=== PATIENT | female | born 1980 | race Caucasian/White ===

== ENCOUNTER 2024-10-28 10:15 | Observation (INO) | payer BC, SELFPAY ==
[2024-10-28] VITALS (18 sets, daily range): BP systolic 112–183; BP diastolic 59–91; PULSE 72–91; RESP 12–19; TEMP 36.1–37.2; O2SAT 95–100; BMI 44.6
--- NOTE | 2024-10-28 | PATH_ITS ---
[facility] Accession Number: [id number] No. of containers..01 Tissue . 01 Material submitted: . appendix - APPENDIX . 01 Diagnosis: APPENDIX, APPENDECTOMY: Acute appendicitis with serositis. MRV 10/31/2024 0912 Local . 01 Electronically signed: . Micaela Javier DO, Pathologist NPI- [id number] . 01 Gross description: . Received in formalin with two identifiers and appendix, is a cano, vermiform appendix, 4.9 cm in length and 0.7 cm in average diameter with cano, roughened serosa with adherent material consistent with exudate. The mesoappendix extends out to 2.9 cm. The margin is patent and is inked blue. The lumen is patent and is 0.3 to 0.1 cm in diameter with no contents identified. The anderson average 0.3 cm thick with no perforation or lesions identified. Forester Aide sections to include the margin, entire bisected distal tip, and cross-sections are submitted in A1. ([id number]) /MRV 10/29/2024 2311 Local . 01 Pathologist provided ICD-10: K35.30 . 01 CPT . 545501 Specimen Comment: A courtesy copy of this report has been sent to [phone] Performed at: [address] [facility] [address], [place], [place] [id number] MD Faisal Marte MD Phone: [phone]
[2024-10-28 10:47] LABS: Add Manual Diff / Slide Review NO; Basophils Absolute Auto 0 /uL (0-100); Basophils Percent Auto 0.5 % (0-2); Eosinophils Absolute Auto 300 /uL (0-450); Eosinophils Percent Auto 3.3 % (2-4); Hematocrit 41.8 % (36-46); Hemoglobin 13.8 g/dL (12.0-16.0); Lymphocytes Absolute Auto 1300 /uL (1100-4500); Lymphocytes Percent Auto 13.4 % (25-40); Mean Corpuscular Hemoglobin 28.2 PG (26-34); Mean Corpuscular Volume 85.3 fL (80-100); Monocytes Absolute Auto 500 /uL (0-900); Monocytes Percent Auto 5.4 % (3-14); Neutrophils Absolute Auto 7600 /uL (1500-7000); Neutrophils Percent Auto 77.4 % (50-75); Platelet Count 232 X10^3/uL (150-400); Red Cell Distribution Width 13.9 % (11.6-14.8); White Blood Cell Count 9.9 X10^3/uL (4.5-11.0)
[2024-10-28 11:06] LABS: Alanine Aminotransferase 37 IU/L (<35); Albumin 4.7 g/dL (3.5-5.0); Albumin Globulin Ratio 1.6 (1.0-2.8); Alkaline Phosphatase 79 U/L (38-126); Aspartate Aminotransferase 27 IU/L (14-36); Bilirubin Total 0.9 mg/dL (0.2-1.3); Blood Urea Nitrogen 14 mg/dL (7-17); Calcium 9.3 mg/dL (8.4-10.2); Carbon Dioxide 26 mmol/L (22-32); Chloride 103 mmol/L (98-107); Estimated Glomerular Filt Rate > 60 mL/min (>60); Glucose 114 mg/dL (70-99); HEMOLYSIS < 15 (0-50); Lipase 192 U/L (23-300); Sodium 138 mmol/L (137-145); Total Protein 7.7 g/dL (6.3-8.2)
--- NOTE | 2024-10-28 11:51 | ED_ITS ---
HPI - Abdominal Pain <Patricia Segura PA-C - Last Filed: 10/28/24 15:03> General Chief Complaint: Abdominal Pain Stated Complaint: Lower right side pain x 1 day Time Seen by Provider: 10/28/24 11:50 Source: patient Mode of arrival: Ambulatory History of Present Illness HPI narrative: This is a 44-year-old woman who presents with concern for right lower quadrant abdominal pain worse with movements since yesterday at around 7:00 p.m. 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 She describes it as generalized right lower quadrant pain when it started and persisting into today. She says if she stays completely still the pain is mild and tolerable but any movement makes it worse and she felt she was going to be unable to work today so she came to the hospital for evaluation. She lives on [address]. She had a normal bowel movement yesterday morning for her. She states she normally has bowel movements once daily. She does state that she has a history of some low abdominal pains which she believes were from ovarian cysts in the past although she has never had this evaluated. She does state that she has a complex history with a retained placenta after delivery and associated bleeding approximately 8 years ago. She has never had any abdominal or pelvic surgeries. She states she has a control implant and does not have periods. She denies nausea, vomiting, fevers, chills, flank pain, dizziness, lightheadedness, vaginal bleeding, diarrhea, constipation urgency frequency of urination or dysuria. Related Data Allergies Allergy/AdvReac Type Severity Reaction Status Date / Time No Known Drug Allergies Allergy Verified 10/28/24 10:23 Review of Systems <Patricia Segura PA-C - Last Filed: 10/28/24 15:03> Review of Systems Narrative: See HPI Patient History <Patricia Segura PA-C - Last Filed: 10/28/24 15:03> Social History household members: spouse Smoking Status: Never smoker Smoking Status: Unknown if ever smoked Exam <Patricia Segura PA-C - Last Filed: 10/28/24 15:03> Narrative Exam Narrative: GENERAL: 44 year old patient appears stated age. Well-developed patient, in mild distress. HEAD: Atraumatic. Normocephalic. EYES: Pupils equal round and reactive. Extraocular motions intact. No scleral icterus. No injection or drainage. ENT: Nose without bleeding, purulent drainage. Airway patent. NECK: Trachea midline. CARDIOVASCULAR: Regular rate and rhythm without murmurs, gallops, or rubs. RESPIRATORY: Clear to auscultation. Breath sounds equal bilaterally. No wheezes, rales, or rhonchi. GASTROINTESTINAL: Abdomen soft, protuberant, there is pronounced right lower quadrant tenderness with light palpation over McBurney's point and generalized right lower quadrant tenderness. Positive obturator sign, increased pain with percussion over McBurney's point negative Rovsing, negative Ravi's, no CVA tenderness. Nondistended. EXTREMITIES: No edema or joint tenderness. BACK: Nontender without deformity or crepitance. No flank tenderness. NEURO: AOx3. SKIN: No rash or erythema of visible areas Initial Vital Signs Initial Vital Signs: Vital Signs Temperature 98.9 F 10/28/24 10:16 Pulse Rate 83 10/28/24 10:16 Respiratory Rate 15 10/28/24 10:16 Blood Pressure 183/84 H 10/28/24 10:16 Pulse Oximetry 99 10/28/24 10:16 Oxygen Delivery Method Room Air 10/28/24 10:16 <Daylin Rosales DO - Last Filed: 10/28/24 15:36> Initial Vital Signs Initial Vital Signs: Vital Signs Temperature 98.9 F 10/28/24 10:16 Pulse Rate 83 10/28/24 10:16 Respiratory Rate 15 10/28/24 10:16 Blood Pressure 183/84 H 10/28/24 10:16 Pulse Oximetry 99 10/28/24 10:16 Oxygen Delivery Method Room Air 10/28/24 10:16 Course <Patricia Segura PA-C - Last Filed: 10/28/24 15:03> Course Course Narrative: Spoke with Dr. Yu, general surgeon about this patient with the acute appendicitis. He will contact OR and see if it is possible to get her in for surgery today versus admit her for surgery tomorrow. He will call back. 12:50 Decision to Admit Date: 10/28/24 Decision to Admit time: 12:50 Additional Information: Admit versus transfer to OR for surgery Orders Ordered: ED Orders 10/28/24 10:38 Complete Blood Count AUTO DIFF Stat Comprehensive Metabolic Panel Stat Lipase Stat 10/28/24 12:05 CT abdomen pelvis w con Stat Fentanyl (Fentanyl 100 Mcg/2 Ml Inj) 0 mcg IV Q5M PRN PRN Reason: Pain, Moderate (4-6) Hydromorphone HCl (Hydromorphone 1 Mg Inj) 0 mg IV Q5MIN PRN PRN Reason: Pain, Moderate (4-6) Hydroxyzine HCl (Hydroxyzine 50 Mg/Ml Inj) 25 mg IM NOW PRN PRN Reason: Pain, Mild (1-3) Lactated Ringer's (Lactated Ringers) 1,000 mls @ 42 mls/hr IV CONT DARYA Last Admin: 10/28/24 14:46 Dose: 42 mls/hr Documented By: GUSTAVO Ondansetron HCl (Ondansetron 4 Mg/2 Ml Inj) 4 mg IV NOW PRN PRN Reason: Nausea And Vomiting Ondansetron HCl (Ondansetron 4 Mg Odt) 4 mg PO NOW PRN PRN Reason: Nausea And Vomiting Ondansetron HCl (Ondansetron 4 Mg/2 Ml Inj) 4 mg IV NOW PRN PRN Reason: Nausea And Vomiting Oxycodone HCl (Oxycodone Ir 5 Mg Tablet) 5 mg PO PACUNOW PRN PRN Reason: Mild or moderate pain Discontinued Medications Bupivacaine HCl/Epinephrine Bitart (Bupivacaine 0.5% W/ Epi (Pf) 30 Ml Vial) 30 ml INJ NOW ONE Stop: 10/28/24 15:26 Last Admin: 10/28/24 15:25 Dose: 30 ml Documented By: Sodium Chloride (Normal Saline 0.9%) 1,000 mls @ 1,000 mls/hr IV BOLUS ONE Stop: 10/28/24 13:14 Last Admin: 10/28/24 12:15 Dose: 1,000 mls/hr Documented By: ELVIE Piperacillin Sod/Tazobactam (Sod 4.5 gm/ Sodium Chloride) 100 mls @ 200 mls/hr IV NOW ONE Stop: 10/28/24 12:44 Last Infusion: 10/28/24 14:06 Dose: Infused Documented By: Admin: 10/28/24 13:04 Dose: 200 mls/hr Documented By: ELVIE Ketorolac Tromethamine (Ketorolac 30 Mg/Ml Vial) 15 mg IV NOW ONE Stop: 10/28/24 12:44 Last Admin: 10/28/24 13:01 Dose: 15 mg Documented By: ELVIE Vital Signs Vital signs: Vital Signs - 8 hr 10/28/24 10:16 10/28/24 12:23 10/28/24 12:24 Temperature 98.9 F Pulse Rate 83 83 83 Respiratory Rate 15 Blood Pressure 183/84 H Pulse Oximetry 99 95 100 Oxygen Delivery Method Room Air 10/28/24 12:24 10/28/24 12:30 10/28/24 12:30 Temperature Pulse Rate 77 Respiratory Rate Blood Pressure 144/86 H 146/91 H Pulse Oximetry 100 Oxygen Delivery Method 10/28/24 13:00 10/28/24 13:00 10/28/24 13:30 Temperature Pulse Rate 84 79 Respiratory Rate Blood Pressure 140/90 Pulse Oximetry 99 99 Oxygen Delivery Method 10/28/24 13:30 Temperature Pulse Rate Respiratory Rate Blood Pressure 144/88 H Pulse Oximetry Oxygen Delivery Method <Daylin Rosales, - Last Filed: 10/28/24 15:36> Orders Ordered: ED Orders 10/28/24 10:38 Complete Blood Count AUTO DIFF Stat Comprehensive Metabolic Panel Stat Lipase Stat 10/28/24 12:05 CT abdomen pelvis w con Stat Fentanyl (Fentanyl 100 Mcg/2 Ml Inj) 0 mcg IV Q5M PRN PRN Reason: Pain, Moderate (4-6) Hydromorphone HCl (Hydromorphone 1 Mg Inj) 0 mg IV Q5MIN PRN PRN Reason: Pain, Moderate (4-6) Hydroxyzine HCl (Hydroxyzine 50 Mg/Ml Inj) 25 mg IM NOW PRN PRN Reason: Pain, Mild (1-3) Lactated Ringer's (Lactated Ringers) 1,000 mls @ 42 mls/hr IV CONT DARYA Last Admin: 10/28/24 14:46 Dose: 42 mls/hr Documented By: GUSTAVO Ondansetron HCl (Ondansetron 4 Mg/2 Ml Inj) 4 mg IV NOW PRN PRN Reason: Nausea And Vomiting Ondansetron HCl (Ondansetron 4 Mg Odt) 4 mg PO NOW PRN PRN Reason: Nausea And Vomiting Ondansetron HCl (Ondansetron 4 Mg/2 Ml Inj) 4 mg IV NOW PRN PRN Reason: Nausea And Vomiting Oxycodone HCl (Oxycodone Ir 5 Mg Tablet) 5 mg PO PACUNOW PRN PRN Reason: Mild or moderate pain Discontinued Medications Bupivacaine HCl/Epinephrine Bitart (Bupivacaine 0.5% W/ Epi (Pf) 30 Ml Vial) 30 ml INJ NOW ONE Stop: 10/28/24 15:26 Last Admin: 10/28/24 15:25 Dose: 30 ml Documented By: Sodium Chloride (Normal Saline 0.9%) 1,000 mls @ 1,000 mls/hr IV BOLUS ONE Stop: 10/28/24 13:14 Last Admin: 10/28/24 12:15 Dose: 1,000 mls/hr Documented By: ELVIE Piperacillin Sod/Tazobactam (Sod 4.5 gm/ Sodium Chloride) 100 mls @ 200 mls/hr IV NOW ONE Stop: 10/28/24 12:44 Last Infusion: 10/28/24 14:06 Dose: Infused Documented By: Admin: 10/28/24 13:04 Dose: 200 mls/hr Documented By: ELVIE Ketorolac Tromethamine (Ketorolac 30 Mg/Ml Vial) 15 mg IV NOW ONE Stop: 10/28/24 12:44 Last Admin: 10/28/24 13:01 Dose: 15 mg Documented By: ELVIE Vital Signs Vital signs: Vital Signs - 8 hr 10/28/24 10:16 10/28/24 12:23 10/28/24 12:24 Temperature 98.9 F Pulse Rate 83 83 83 Respiratory Rate 15 Blood Pressure 183/84 H Pulse Oximetry 99 95 100 Oxygen Delivery Method Room Air 10/28/24 12:24 10/28/24 12:30 10/28/24 12:30 Temperature Pulse Rate 77 Respiratory Rate Blood Pressure 144/86 H 146/91 H Pulse Oximetry 100 Oxygen Delivery Method 10/28/24 13:00 10/28/24 13:00 10/28/24 13:30 Temperature Pulse Rate 84 79 Respiratory Rate Blood Pressure 140/90 Pulse Oximetry 99 99 Oxygen Delivery Method 10/28/24 13:30 Temperature Pulse Rate Respiratory Rate Blood Pressure 144/88 H Pulse Oximetry Oxygen Delivery Method MDM - Abdominal Pain <Patricia Segura PA-C - Last Filed: 10/28/24 15:03> Differential Diagnosis Differential diagnosis: Likely abdominal pain, acute appendicitis, constipation, diverticulitis and other (Ovarian cyst) Medical Records Attestation: I reviewed the patient's medical records. Lab Data Attestation: I reviewed the patient's lab results. 10/28/24 10:38 10/28/24 10:38 Labs: Lab Results 10/28/24 Range/Units 10:38 WBC 9.9 (4.5-11.0) X10^3/uL RBC 4.90 (4.0-5.2) X10^6/uL Hgb 13.8 (12.0-16.0) g/dL Hct 41.8 (36-46) % MCV 85.3 (80-100) fL MCH 28.2 (26-34) PG MCHC 33.0 (30-36) % RDW 13.9 (11.6-14.8) % Plt Count 232 (150-400) X10^3/uL Neut % (Auto) 77.4 H (50-75) % Lymph % (Auto) 13.4 L (25-40) % [place] % (Auto) 5.4 (3-14) % Eos % (Auto) 3.3 (2-4) % Baso % (Auto) 0.5 (0-2) % Neut # (Auto) 7600 H (1882-5687) /uL Lymph # (Auto) 1300 (4545-4403) /uL [place] # (Auto) 500 (0-900) /uL Eos # (Auto) 300 (0-450) /uL Baso # (Auto) 0 (0-100) /uL Sodium 138 (137-145) mmol/L Potassium 4.0 (3.4-5.1) mmol/L Chloride 103 (98-107) mmol/L Carbon Dioxide 26 (22-32) mmol/L BUN 14 (7-17) mg/dL Creatinine 0.70 (0.52-1.04) mg/dL Estimated GFR > 60 (>60) mL/min BUN/Creatinine Ratio 20.0 (6-22) Glucose 114 H (70-99) mg/dL Calcium 9.3 (8.4-10.2) mg/dL Total Bilirubin 0.9 (0.2-1.3) mg/dL AST 27 (14-36) IU/L ALT 37 H (<35) IU/L Alkaline Phosphatase 79 (38-126) U/L Total Protein 7.7 (6.3-8.2) g/dL Albumin 4.7 (3.5-5.0) g/dL Globulin 3.0 (1.7-4.1) g/dL Albumin/Globulin Ratio 1.6 (1.0-2.8) Lipase 192 (23-300) U/L Point of care testing: Point of Care Testing Test Results Negative Urine Dip Bedside Urine Glucose Negative Bedside Urine Bilirubin - Negative Bedside Urine Ketone - Negative Urine Specific [place] 1.010 Bedside Urine Occult Blood - Negative Bedside Urine pH 7.0 Bedside Urine Protein - Negative Bedside Urine Urobilinogen - Negative Bedside Urine Nitrite - Negative Bedside Urine Leukocytes - Negative Esterase Imaging Data CT scan - abdomen/pelvis: My Impression: Agree with Radiology interpretation Radiologist's Impression: [place] [address] CT Scan Report Signed Patient: Padmini Ham MR#: [id number] : 1980 Acct:[id number] Age/Sex: 44 / F Date of Service: 10/28/24 Loc: Accession Number: [id number] Procedure: CT abdomen pelvis w con Ordering Provider: Patricia Segura PA-C PROCEDURE: CT ABDOMEN PELVIS W CON INDICATIONS: RLQ tenderness-PN R/O Appy TECHNIQUE: After the administration of intravenous contrast, axial sections acquired from the lung bases to the pubic symphysis. Coronal and sagittal reformats were performed. For radiation dose reduction, the following was used: automated exposure control, adjustment of mA and/or kV according to patient size. COMPARISON: None. FINDINGS: Image quality: Diagnostic Lower chest: Unremarkable lung bases Trace hiatal hernia. Liver: Possible hepatic steatosis. Gallbladder and biliary system: Unremarkable, nondilated Pancreas: No ductal dilation Spleen: Nonenlarged Adrenals: No discrete nodules Kidneys: No solid renal mass or hydronephrosis. Vessels and lymph nodes: The main portal vein is patent. No abdominal aortic aneurysm. No pathologic lymphadenopathy by size criteria. Bowel and peritoneum: No small bowel obstruction. Colonic diverticulosis. Moderate appendiceal dilation inflammation. No drainable fluid collection Body wall: Small fat containing umbilical hernia Pelvis: Bladder is unremarkable. Reproductive organs are unremarkable on limited CT evaluation Bones: No aggressive appearing osseous abnormality. Nonspecific right upper sacral sclerosis, possibly degenerative. IMPRESSION: Acute appendicitis, with moderate surrounding inflammation. No significant surrounding fluid. Other findings above. Dictated by: Homero Jennings M.D. on 10/28/2024 at 12:28 Approved by: Homero Jennings M.D. on 10/28/2024 at 12:31 Treatment and Disposition Shared decision making:: Shared decision-making was used in determining plan for evaluation today including CT scan. MDM Narrative Medical decision making narrative: This is a 44-year-old female with obesity; patient presenting with concern for right lower quadrant pain since about 7:00 p.m. last night. Last meal at 8:00 p.m. last night. Her labs are overall unremarkable with no leukocytosis noted; though she was hypertensive on intake--suspect second to pain. Pain is most pronounced with movement and pressing over McBurney's point. She initially declined pain medication. She does have multiple signs on exam concerning for appendicitis. After discussion with the patient she is agreeable to CT scan for further evaluation. Ovarian cyst was another possibility given her reported history of this however this seems less likely based on her exam and history of her current illness. CT does show a nonruptured appendicitis with surrounding inflammation. General surgeon Dr Yu was consulted regarding the patient. She received a fluid bolus as well as Zosyn, and Toradol. She was taken to the OR directly from the ER with plan for admission under Dr. Yu. <Daylin Rosales, - Last Filed: 10/28/24 15:36> Lab Data Labs: Lab Results 10/28/24 Range/Units 10:38 WBC 9.9 (4.5-11.0) X10^3/uL RBC 4.90 (4.0-5.2) X10^6/uL Hgb 13.8 (12.0-16.0) g/dL Hct 41.8 (36-46) % MCV 85.3 (80-100) fL MCH 28.2 (26-34) PG MCHC 33.0 (30-36) % RDW 13.9 (11.6-14.8) % Plt Count 232 (150-400) X10^3/uL Neut % (Auto) 77.4 H (50-75) % Lymph % (Auto) 13.4 L (25-40) % [place] % (Auto) 5.4 (3-14) % Eos % (Auto) 3.3 (2-4) % Baso % (Auto) 0.5 (0-2) % Neut # (Auto) 7600 H (5632-0340) /uL Lymph # (Auto) 1300 (7019-6704) /uL [place] # (Auto) 500 (0-900) /uL Eos # (Auto) 300 (0-450) /uL Baso # (Auto) 0 (0-100) /uL Sodium 138 (137-145) mmol/L Potassium 4.0 (3.4-5.1) mmol/L Chloride 103 (98-107) mmol/L Carbon Dioxide 26 (22-32) mmol/L BUN 14 (7-17) mg/dL Creatinine 0.70 (0.52-1.04) mg/dL Estimated GFR > 60 (>60) mL/min BUN/Creatinine Ratio 20.0 (6-22) Glucose 114 H (70-99) mg/dL Calcium 9.3 (8.4-10.2) mg/dL Total Bilirubin 0.9 (0.2-1.3) mg/dL AST 27 (14-36) IU/L ALT 37 H (<35) IU/L Alkaline Phosphatase 79 (38-126) U/L Total Protein 7.7 (6.3-8.2) g/dL Albumin 4.7 (3.5-5.0) g/dL Globulin 3.0 (1.7-4.1) g/dL Albumin/Globulin Ratio 1.6 (1.0-2.8) Lipase 192 (23-300) U/L Point of care testing: Point of Care Testing Test Results Negative Urine Dip Bedside Urine Glucose Negative Bedside Urine Bilirubin - Negative Bedside Urine Ketone - Negative Urine Specific [place] 1.010 Bedside Urine Occult Blood - Negative Bedside Urine pH 7.0 Bedside Urine Protein - Negative Bedside Urine Urobilinogen - Negative Bedside Urine Nitrite - Negative Bedside Urine Leukocytes - Negative Esterase Discharge Plan Departure Patient Disposition: Admitted to Surgery Clinical Impression: Acute appendicitis Qualifiers: Acute appendicitis type: unspecified acute appendicitis type Qualified Code(s): K35.80 - Unspecified acute appendicitis Admit Date/Time: 10/28/24 13:31 Admit Provider: Guido Yu ED Sign-out <Daylin Rosales DO - Last Filed: 10/28/24 15:36> Cosign ED Attending Prachiature Attestation: I was immediately available in the department for consultation.
--- NOTE | 2024-10-28 12:05 | DI.CT.S_ITS ---
PROCEDURE: CT ABDOMEN PELVIS W CON INDICATIONS: RLQ tenderness-PN R/O Appy TECHNIQUE: After the administration of intravenous contrast, axial sections acquired from the lung bases to the pubic symphysis. Coronal and sagittal reformats were performed. For radiation dose reduction, the following was used: automated exposure control, adjustment of mA and/or kV according to patient size. COMPARISON: None. FINDINGS: Image quality: Diagnostic Lower chest: Unremarkable lung bases Trace hiatal hernia. Liver: Possible hepatic steatosis. Gallbladder and biliary system: Unremarkable, nondilated Pancreas: No ductal dilation Spleen: Nonenlarged Adrenals: No discrete nodules Kidneys: No solid renal mass or hydronephrosis. Vessels and lymph nodes: The main portal vein is patent. No abdominal aortic aneurysm. No pathologic lymphadenopathy by size criteria. Bowel and peritoneum: No small bowel obstruction. Colonic diverticulosis. Moderate appendiceal dilation inflammation. No drainable fluid collection Body wall: Small fat containing umbilical hernia Pelvis: Bladder is unremarkable. Reproductive organs are unremarkable on limited CT evaluation Bones: No aggressive appearing osseous abnormality. Nonspecific right upper sacral sclerosis, possibly degenerative. IMPRESSION: Acute appendicitis, with moderate surrounding inflammation. No significant surrounding fluid. Other findings above. Dictated by: Homero Jennings M.D. on 10/28/2024 at 12:28 Approved by: Homero Jennings M.D. on 10/28/2024 at 12:31
[2024-10-28] MEDS: SODIUM CHLORIDE 0.9% 1,000 ML 1000 ML IV (12:15)
[2024-10-28] MEDS: KETOROLAC 30 MG/ML VIAL 15 MG IV (13:01)
[2024-10-28] MEDS: PIPERACILLIN/TAZO 4.5 GM in SODIUM CHLORIDE 0.9% 100 ML IV (13:04)
--- NOTE | 2024-10-28 14:41 | PM.HP.IH.1 ---
History of Present Illness History of Present Illness Date Patient Seen: 10/28/24 Time Patient Seen: 14:41 Chief complaint: Lower right side pain x 1 day Narrative: Padmini is a 44 year old woman who presented to the ER with one day of right sided abdominal pain. A CT was performed in the ER showing acute uncomplicated appendicitis. She [place] on [place] on [place]. [facility] Social History Smoking Status: Unknown if ever smoked Meds Home Medications and Allergies Allergies Allergy/AdvReac Type Severity Reaction Status Date / Time No Known Drug Allergies Allergy Verified 10/28/24 10:23 Exam Vital Signs (past 8 hours): - 10/28/24 10:16 10/28/24 12:23 10/28/24 12:24 Temperature 98.9 F Pulse Rate 83 83 83 Respiratory Rate 15 Blood Pressure 183/84 H Pulse Oximetry 99 95 100 Oxygen Delivery Method Room Air 10/28/24 12:24 10/28/24 12:30 10/28/24 12:30 Temperature Pulse Rate 77 Respiratory Rate Blood Pressure 144/86 H 146/91 H Pulse Oximetry 100 Oxygen Delivery Method 10/28/24 13:00 10/28/24 13:00 10/28/24 13:30 Temperature Pulse Rate 84 79 Respiratory Rate Blood Pressure 140/90 Pulse Oximetry 99 99 Oxygen Delivery Method 10/28/24 13:30 Temperature Pulse Rate Respiratory Rate Blood Pressure 144/88 H Pulse Oximetry Oxygen Delivery Method Oxygen Delivery Method Room Air Narrative Exam Narrative: Abdomen tender to palp in the RLQ Objective Labs 10/28/24 10:38 10/28/24 10:38 Labs: Laboratory Results - last 24 hr 10/28/24 10:38 WBC 9.9 RBC 4.90 Hgb 13.8 Hct 41.8 MCV 85.3 MCH 28.2 MCHC 33.0 RDW 13.9 Plt Count 232 Neut % (Auto) 77.4 H Lymph % (Auto) 13.4 L [place] % (Auto) 5.4 Eos % (Auto) 3.3 Baso % (Auto) 0.5 Neut # (Auto) 7600 H Lymph # (Auto) 1300 [place] # (Auto) 500 Eos # (Auto) 300 Baso # (Auto) 0 Sodium 138 Potassium 4.0 Chloride 103 Carbon Dioxide 26 BUN 14 Creatinine 0.70 Estimated GFR > 60 BUN/Creatinine Ratio 20.0 Glucose 114 H Calcium 9.3 Total Bilirubin 0.9 AST 27 ALT 37 H Alkaline Phosphatase 79 Total Protein 7.7 Albumin 4.7 Globulin 3.0 Albumin/Globulin Ratio 1.6 Lipase 192 Assessment & Plan Assessment and plan (1) Acute appendicitis: Qualifiers: Acute appendicitis type: with localized peritonitis Appendicitis abscess presence: without abscess Appendicitis gangrene presence: without gangrene Appendicitis perforation presence: without perforation Qualified Code(s): K35.30 - Acute appendicitis with localized peritonitis, without perforation or gangrene Status: Acute Plan We discussed the condition of acute appendicitis and the various treatment options including antibiotics alone. She would like to proceed with surgery. Time-Based Coding :: [TOTAL MINUTES] spent with patient and on the chart (including review of chart, obtaining history, exam, reviewing outside data, placing orders, documenting exam and treatment plan, and counseling patient) on [DATE]. 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
[2024-10-28] MEDS: LACTATED RINGERS 1,000 ML 42 ML IV (14:46)
--- NOTE | 2024-10-28 15:19 | SUR.OPER ---
Supine on padded OR bed, head on pillow, left arm padded and tucked at sides, right arm at less than 90 degrees abducted, legs uncrossed, safety belt at thigh, tape over blanket over lower legs .
[2024-10-28] MEDS: BUPIVACAINE 0.5% W/ EPI (PF) 30 ML VIAL INJ (15:25)
--- NOTE | 2024-10-28 16:01 | PM.OP.1 ---
Operative Date/Time/Diagnoses Date of procedure: 10/28/24 Time of procedure: 16:01 Pre-op diagnosis: Acute appendicitis Post-op diagnosis: same Procedure & Clinicians Procedure: Laparoscopic appendectomy Same procedure as scheduled: Yes Surgeon: Guido Yu Click Yes if Unassisted: Yes Anesthesia Type: General Operative Notes Findings: Acutely inflamed appendix without gangrene or perforation Estimated Blood Loss (mL): 15 Procedure in detail: The patient was on IV antibiotics. The patient was brought to the operating room, placed on the table in the supine position and general endotracheal anesthesia was induced. A time-out was performed. The abdomen was prepped and draped in the usual fashion. After injection of local anesthetic a 1 cm infraumbilical incision was created with a 15 blade scalpel. The umbilical stalk was grasped with a Harshil clamp to elevate the abdominal wall. The infraumbilical midline fascia was cleared over 1 cm and the fascia was scored with cautery. The peritoneum was pierced with a Peon clamp. The Maciej port was placed and the abdomen was insufflated to 15 mmHg. The camera was inserted and there was no evidence of any injury from the entry. Next, 5 mm ports were placed in the suprapubic and right upper quadrant positions under direct vision. The patient was placed in Trendelenburg with the right-side elevated. The terminal ileum was swept away from the cecum and the appendix was visualized. The appendix was inflamed and distended but not perforated and there was no evidence of gangrene. The mesoappendix was divided with the Power-seal. Two PDS Endoloops were placed at the base and a 3rd endoloop was placed about a centimeter distally and the appendix was divided sharply. The specimen was placed in a Endo-Catch bag. A small amount of fluid with suctioned from the base of the appendix and pelvis. The table was flattened and the terminal ileum and omentum were allowed to slide in over the appendiceal stump. Finally, the 5 mm ports were removed under direct vision. The pneumoperitoneum was released and the Maciej port was removed followed by the Endo-Catch bag. Additional local was injected into the fascia and the infraumbilical incision was closed with 2 interrupted 2-0 Vicryl sutures. The skin incisions were closed with 4 Monocryl. Steri-Strips were applied followed by Band-Aids. EBL: 15 mL Specimen: Appendix Complications: none Post-operative Condition: stable Disposition: PACU
[2024-10-28] MEDS: OXYCODONE IR 5 MG TABLET PO (16:28)
[2024-10-28] MEDS: SODIUM CHLORIDE 0.9% 250 ML 21 ML IV (17:23)
[2024-10-28] MEDS: PIPERACILLIN/TAZO 3.375 GM in SODIUM CHLORIDE 0.9% 100 ML IV (17:23)
[2024-10-28] MEDS: IBUPROFEN 600 MG TABLET PO (17:26)
--- NOTE | 2024-10-28 18:13 | PC.NURSE ---
Patient brought up from PACU to room 202 approx 1640. Oriented to room and call light, call light placed within reach. 3 abdominal lap sites with foam nonadherent dressings in place, without bleeding or drainage, CDI. VSS. Patient has no questins or concerns at this time. Continue with plan of care.
[2024-10-29] VITALS: BP 124/69; PULSE 93; RESP 16; TEMP 36.4; O2SAT 94
[2024-10-29] MEDS: HYDROCODONE/ACET 5/325 TABLET 1 TAB PO ×2 (00:16→03:28)
[2024-10-29] MEDS: PIPERACILLIN/TAZO 3.375 GM in SODIUM CHLORIDE 0.9% 100 ML IV (00:17)
[2024-10-29 04:00] VITALS: BP 119/73; PULSE 85; RESP 16; TEMP 36.6; O2SAT 98
[2024-10-29 08:00] VITALS: BP 115/67; PULSE 87; RESP 16; TEMP 36.4; O2SAT 99
[2024-10-29] MEDS: IBUPROFEN 600 MG TABLET PO (08:29)
[2024-10-29] MEDS: ACETAMINOPHEN 325 MG TABLET 650 MG PO (08:34)
--- NOTE | 2024-10-29 09:24 | PC.NURSE ---
Day shift: Discharge instructions gone over with patient. All questions answered, patient stated understanding. PIV removed prior to discharge. All belongings with patient. PCT Lisandro escorted patient via wheelchair to exit where she plans to take ferry back to [place].
--- NOTE | 2024-10-29 10:13 | CM.DANOTE ---
DCP Assessment note pt is POD1 lap appy with Dr. 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 medically cleared for home. per RN, pt asking for ferry boarding pass all reservations full. LAND MANAGEMENT SUPERVISOR met with pt in room. gave print out of ferry pass. Pt confirms living indep on boat on [address]. spouse will help take her home. denies other CM/DCP needs at this time. P: dc home today with spouse support. transport with spouse in POV and ferry. CM team will continue to follow as needed LORY Mullins Discharge Planning/Care Management CM Discharge Assessment Start: 10/28/24 13:34 Freq: Status: Discharge Protocol: Document 10/29/24 10:12 SL (Rec: 10/29/24 10:13 SL Desktop) Discharge Planning Assessment Assigned Bead Wrapper LORY Garcia DPOA/Assigned Designee Name Shahram, spouse Advance Directives? No History Provided By Patient Prior Living Arrangements Other Comment boat Household Members spouse Type of transporation used prior to Drives own vehicle admit Independent with ADL's Yes Is patient alert and oriented? Yes Barriers to Discharge No Transportation Arrangement car/ferry Referrals Initiated None needed Review Status In Process Please Provide Date Initial DC 10/29/24 Assessment Was Performed Next Review Type Continued Stay Review
== END 2024-10-29 09:25 | disposition home or self-care (01) ==
LOC: ED 12:51 → AC 13:31
PROVIDERS: Emergency Medicine; Admitting Provider Surgery; Emergency Provider Student in an Organized Health Care Education/Training Program; PCP Nurse Practitioner Family; Referring Provider Student in an Organized Health Care Education/Training Program; Visit Provider Surgery
PROC: 0DTJ4ZZ Resection of Appendix, Percutaneous Endoscopic Approach (ICD-10-PCS; CPT 44970; principal; 2024-10-28 15:00)
DX: R10.31 Right lower quadrant pain (principal); K35.890 Other acute appendicitis without perforation or gangrene; E66.9 Obesity, unspecified
CPT/HCPCS: 44970; 36415; 74177; 80053; 81003; 81025; 83690; 85025; 96365; 96375; 99221; 99284; G0378; J0330; J1100; J1171; J1885; J2250; J2405; J2543; J2704; J3010; J3490; Q9967